=== PATIENT | female | born 1980 | race Caucasian/White ===

== ENCOUNTER → 2019-06-07 10:49 | Outpatient (CLI) | payer OTHER, SELFPAY ==
--- NOTE | 2019-06-10 15:59 | PM.PFT.1 ---
Pulmonary Function Test Referral & Results Date Patient Seen: 06/07/19 Requesting provider: Nirali Quiros Indication: Wheezing Results: The spirometry demonstrates an FVC of 3.60 L which is 79% of predicted. The FEV1 was measured at 3.08 L which is 84% of predicted. The FEV1/FVC ratio was Lasix which is 106% of predicted. Following the administration of bronchodilator there was no appreciable change. Lung volumes show an SVC of 3.25 L which is 73% of predicted. The diffusing capacity was measured at 27.21 which is 106% of predicted. The maximum voluntary ventilation was normal Interpretation: This study demonstrates slight reduction in FEV1 but normal FEV1/FVC ratio. There is no evidence of benefit following bronchodilator. This may be consistent with very mild obstructive lung disease. There is also slight reduction in lung volumes suggesting mild restrictive lung disease Flow volume loop however appears normal in its contour. Clinical correlation suggested
== END ==
PROVIDERS: PCP Family Medicine; Visit Provider Family Medicine
DX: R06.2 Wheezing (principal)
CPT/HCPCS: 94060; 94726; 94729